=== PATIENT | female | born 1960 | race Caucasian/White ===

== ENCOUNTER 2018-02-28 15:40 | Observation (INO) ==
[2018-02-28 17:29] LABS: Basophils % 0.4 % (0.0-0.8); Eosinophils # 0.4 10*3/uL (0.0-0.87); Eosinophils % 4.9 % (0.00-10.9); Hematocrit 36.1 VOL% (35.7-47.0); Immature Granulocytes % 0.6 %; Immature Granulocytes Absolute 0.04 #; Lymphocytes % 14.6 % (21.3-54.2); Mean Corpuscular HGB Conc 33.2 GM/DL (32-36); Mean Corpuscular Hemoglobin 31 PG (27-34); Mean Corpuscular Volume 91.6 FL (87-102); Mean Platelet Volume 12.6 FL (9.6-12.0); Monocytes % 14.6 % (1.7-12.7); Neutrophils # 4.6 10*3/uL (1.4-7.4); Neutrophils % 64.9 % (38.7-73.9); Platelet Count 132 T/CUMM (130-400); Red Blood Count 3.94 MC/CUMM (3.8-5.5); Red Cell Distribution Width 13.2 % (9.3-17.3); White Blood Count 7.1 T/CUMM (4-12)
[2018-02-28 17:48] LABS: Alanine Aminotransferase 24 U/L (13-56); Albumin 3.6 G/DL (3.4-5.0); Alkaline Phosphatase 49 U/L (45-117); Aspartate Amino Transferase 18 U/L (0-37); Bilirubin,Total < 0.39 MG/DL (0.2-1.0); Blood Urea Nitrogen 21 MG/DL (7-18); Calcium 8.9 MG/DL (8.5-10.1); Glucose 93 MG/DL (74-106); Osmolality,Calculated 279.5 MOS/KG (273-304); Potassium 4.6 MMOL/L (3.5-5.1); Sodium 139 MMOL/L (136-145); Total Protein 6.7 G/DL (6.4-8.3)
[2018-02-28] MEDS ORDERED: ACETAMINOPHEN 500 MG TABLET PO STA (18:16)
[2018-02-28] MEDS ORDERED: ACETAMINOPHEN 500 MG TABLET ONE (18:17)
[2018-02-28 18:20] LABS: Apearance,Urine CLEAR (Clear); Bilirubin,Urine Negative (Negative); Blood, Urine Negative (Negative); Glucose,Urine (UA) Negative (Negative); Ketones,Urine Negative (Negative); Mucus,Urine Occasional /LPF (Occasional); Nitrite,Urine Negative (Negative); Protein,Urine Negative; RBC,Urine 2 /HPF (0-4); Squamous Epithelial Cell,Urine Occasional /HPF (0-10); Urine Color Yellow (Yellow); Urine Specific Gravity 1.011 (1.001-1.035); Urine Urobilinogen < 2.0 EU/DL (0.2-1.0); WBC,Urine 2 /HPF (0-6)
[2018-02-28] MEDS ORDERED: ONDANSETRON 4 MG/2 ML VIAL IV STA (20:02)
[2018-02-28] MEDS ORDERED: LORazepam 2 MG/1 ML VIAL IV STA (20:52)
[2018-02-28] MEDS ORDERED: KETOROLAC 30 MG/1 ML VIAL IV STA (20:52)
[2018-02-28] MEDS ORDERED: IBUPROFEN 800 MG TABLET ONE (23:30)
[2018-03-01] MEDS ORDERED: cefTRIAXone 1,000 MG VIAL ONE (03:31)
[2018-03-01] MEDS ORDERED: KETOROLAC 30 MG/1 ML VIAL ONE (03:31)
[2018-03-01] MEDS: KETOROLAC 15 MG/1 ML VIAL IV PRN ×2 (03:43→20:50)
[2018-03-01] MEDS ORDERED: cefTRIAXone 1,000 MG in SODIUM CHLORIDE 0.9% 100 ML IV STA (04:14)
[2018-03-01] MEDS ORDERED: ONDANSETRON 4 MG/2 ML VIAL IV PRN (05:27)
[2018-03-01] MEDS: SODIUM CHLORIDE 0.9% 1,000 ML IV SCH ×2 (06:41→19:30)
[2018-03-01] MEDS ORDERED: IBUPROFEN 800 MG TABLET PO ONE (06:42)
[2018-03-01] MEDS: GABAPENTIN 400 MG CAPSULE PO SCH ×3 (08:44→20:49)
[2018-03-01] MEDS: ENOXAPARIN 40 MG/0.4 ML SYRINGE SUBCUT SCH (08:44)
[2018-03-01] MEDS: PANTOPRAZOLE 40 MG TABLET PO SCH ×2 (08:44→08:53)
[2018-03-01] MEDS: PROPRANOLOL LA 60 MG CAPSULE PO SCH (15:15)
[2018-03-02 07:20] LABS: Basophils % 0.5 % (0.0-0.8); Eosinophils # 0.4 10*3/uL (0.0-0.87); Hematocrit 33.6 VOL% (35.7-47.0); Hemoglobin 11.1 GM/DL (12.0-16.0); Immature Granulocytes % 0.5 %; Immature Granulocytes Absolute 0.02 #; Lymphocytes # 1.6 10*3/uL (1.4-4.0); Mean Corpuscular Hemoglobin 31 PG (27-34); Mean Corpuscular Volume 93.1 FL (87-102); Mean Platelet Volume 13.1 FL (9.6-12.0); Monocytes # 0.7 10*3/uL (0.11-0.8); Monocytes % 15.5 % (1.7-12.7); Neutrophils # 1.6 10*3/uL (1.4-7.4); Neutrophils % 37.5 % (38.7-73.9); Platelet Count 109 T/CUMM (130-400); Red Blood Count 3.61 MC/CUMM (3.8-5.5); Red Cell Distribution Width 13.1 % (9.3-17.3); White Blood Count 4.3 T/CUMM (4-12)
[2018-03-02 07:45] LABS: Band Neutrophils 9 % (0-10); Lymphocytes 43 % (20-55); Macrocytosis Slight; Platelet Estimate Decreased; Segmented Neutrophils 31 % (50-85); Total Cells Counted 100
[2018-03-02 07:57] LABS: Calcium 8.1 MG/DL (8.5-10.1); Osmolality,Calculated 290.6 MOS/KG (273-304)
[2018-03-02] MEDS ORDERED: cefTRIAXone 1,000 MG in SYRINGE 1 EACH IV SCH (09:00)
[2018-03-02] MEDS: PROPRANOLOL LA 60 MG CAPSULE PO SCH (09:36)
[2018-03-02] MEDS: GABAPENTIN 400 MG CAPSULE PO SCH (09:38)
[2018-03-02] MEDS: PANTOPRAZOLE 40 MG TABLET PO SCH (09:42)
[2018-03-02] MEDS: ENOXAPARIN 40 MG/0.4 ML SYRINGE SUBCUT SCH (09:44)
[2018-03-02 16:00] VITALS: BP 107/57
== END 2018-03-02 16:50 | disposition home or self-care (01) ==
LOC: N.ED 15:40 → INTOOBSV 03-01 05:27 → SUATTDRO 03-01 05:27 → N.EDINP 03-01 05:27 → N.2E 03-01 06:00
PROVIDERS: ADMIT Internal Medicine; ATTEND Internal Medicine